=== PATIENT | female | born 1990 | race Caucasian/White ===

== ENCOUNTER → 2018-06-15 13:36 | Outpatient (CLI) | payer OTHER | END | disposition home or self-care (01) | LOC: D.LDO 13:36 | DX: O26.899 Other specified pregnancy related conditions, unspecified trimester (principal); Z3A.00 Weeks of gestation of pregnancy not specified; K59.09 Other constipation ==

== ENCOUNTER → 2018-06-22 14:38 | Outpatient (CLI) | payer OTHER | END | disposition home or self-care (01) | LOC: D.LDO 14:38 | DX: O26.899 Other specified pregnancy related conditions, unspecified trimester (principal); Z3A.00 Weeks of gestation of pregnancy not specified; K59.00 Constipation, unspecified ==

== ENCOUNTER → 2018-07-10 13:04 | Outpatient (CLI) | payer MEDICARE ==
--- NOTE | ~2018-07-10 | EC ---
PATIENT:JAD BERNAL DATE OF SERVICE: 07/10/18 SEX: F MEDICAL RECORD: [id number] DATE OF : 88 LOCATION:D.FORMERLY [facility], LATER [facility] AGE OF PATIENT: 27 ADMISSION DATE: 07/10/18 REFERRING PHYSICIAN: INTERPRETING PHYSICIAN: CHANDA WEAVER MD ECHOCARDIOGRAM REPORT ECHO CHARGES 4 ECHO COMPLETE Date: 07/10/18 CLINICAL DIAGNOSIS: MURMUR/DYSPNEA ECHOCARDIOGRAPHIC MEASUREMENTS (adult normal given) AC root (d.<3.7cm) 2.5 cm LV Septum d (<1.2 cm> 1.0 cm Valve Excursion 1.8 cm LV Septum (systole) 1.5 cm Left Atria (s.<4.0cm> 3.2 cm LVPW d(<1.2cm) 1.1 cm RV (d.<2.3cm) 3.2 cm LVPW (sytole) 1.5 cm LV diastole(<5.6CM) 4.0 cm MV E-F(>70mm/sec) cm LV systole 1.9 cm LVOT Diameter 1.9 cm MV exc.(>10mm) cm Est.ejection fraction (50-75%) % DOPPLER: LVIT cm/sec A 87.0 cm/sec E 72.0 cm/sec LA cm/sec RVSP 29.3 mmHg LVOT 78.0 cm/sec AOP1/2T m/s Asc. Ao 118 cm/sec RVOT 100 cm/sec RA cm/sec PA 97.0 cm/sec AV Gradient Peak 5.6 mmHg AV Mean 3.0 mmHg AV Area 1.7 cm MV Gradient Peak 3.7 mmHg MV Mean 1.5 mmHg MV Area cm COMMENTS: Ragman: Jimi OZUNAOE Grinder Machine Knife Setter: 3 Dr. Archer TAPE# PACS Pericardial Effusion N DATE OF SERVICE: 07/10/2018 Adequate 2D, color flow and spectral Doppler, and M-mode. No LVH. LV internal dimensions are normal. Wall motion is normal. EF is greater than 55%. Aortic valve is tricuspid. No evidence of stenosis by Doppler interrogation. Left atrium is normal at 3.2 cm. Mitral valve shows no prolapse. Trace MR. Right-sided chambers grossly normal. Trace TR. TRANSINT:[id number] Voice Confirmation ID: [id number] DOCUMENT ID: [id number] ECHOCARDIOGRAM REPORT [id number] JAD BERNAL,CHANDA Reyes MD at 1303 CC: [id number] DICTATION DATE: 07/12/18831 CINNAMON GRINDER: 07/12/18 0845 DEP CLI 07/10/18 [id number] [place] [address]
== END | disposition home or self-care (01) ==
LOC: D.ECHO 13:04
DX: R01.1 Cardiac murmur, unspecified (principal); R06.02 Shortness of breath

== ENCOUNTER → 2018-08-31 12:25 | Outpatient (CLI) | payer MEDICARE ==
[2018-08-31 14:07] LABS: APPEARANCE SL CLDY (CLEAR); BILIRUBIN NEGATIVE (NEGATIVE); COLOR YELLOW (YELLOW); GLUCOSE NEGATIVE (NEGATIVE); KETONE NEGATIVE (NEGATIVE); NITRITE NEGATIVE (NEGATIVE); PROTEIN NEGATIVE (NEGATIVE); SPECIFIC GRAVITY 1.025 (1.005-1.020); UROBILINOGEN NORMAL (NORMAL)
== END | disposition home or self-care (01) ==
LOC: D.LDO 12:25
PROVIDERS: Obstetrics & Gynecology
DX: O26.892 Other specified pregnancy related conditions, second trimester (principal); Z3A.22 22 weeks gestation of pregnancy; R10.30 Lower abdominal pain, unspecified

== ENCOUNTER → 2018-11-08 06:21 | Outpatient (CLI) | payer MEDICARE ==
[2018-11-08 07:21] LABS: BASOPHILS 0.1 % (0-2); EOSINOPHILS 1.3 % (0-7); HEMATOCRIT 34.3 % (36.0-48.0); HEMOGLOBIN 10.9 g/dL (12-16); IMMATURE GRANULOCYTES 0.4 % (0-5); LYMPHOCYTES 16.9 % (15-50); MCH 27.3 pg (26.0-34.0); MCHC 31.8 g/dL (31.0-37.0); MEAN PLATELET VOLUME 9.4 fL (7.4-10.4); MONOCYTES 6.9 % (2-11); NEUTROPHILS 74.4 % (40-80); PLATELET COUNT 286 10x3/uL (130-400); RBC 3.99 10x6/uL (4.00-5.40); RDW 13.5 % (11.5-14.5); WBC 8.3 10x3/uL (4.8-10.8)
[2018-11-08 07:23] LABS: APPEARANCE HAZY (CLEAR); COLOR YELLOW (YELLOW); SPECIFIC GRAVITY 1.015 (1.005-1.020)
[2018-11-08 07:24] LABS: BILIRUBIN NEGATIVE (NEGATIVE); GLUCOSE NEGATIVE (NEGATIVE); KETONE NEGATIVE (NEGATIVE); NITRITE NEGATIVE (NEGATIVE); PROTEIN NEGATIVE (NEGATIVE); UROBILINOGEN NORMAL (NORMAL)
[2018-11-08 08:06] LABS: UDS - AMPHET NEGATIVE QUAL (NEGATIVE); UDS - BARB NEGATIVE QUAL (NEGATIVE); UDS - BENZO POSITIVE QUAL (NEGATIVE); UDS - COCAINE NEGATIVE QUAL (NEGATIVE); UDS - OPIATE NEGATIVE QUAL (NEGATIVE); UDS - PCP NEGATIVE QUAL (NEGATIVE); UDS - THC NEGATIVE QUAL (NEGATIVE)
== END | disposition home or self-care (01) ==
LOC: D.LDO 06:21
PROVIDERS: ATTEND Obstetrics & Gynecology
DX: O26.893 Other specified pregnancy related conditions, third trimester (principal); Z3A.31 31 weeks gestation of pregnancy; R10.9 Unspecified abdominal pain

== ENCOUNTER → 2018-12-04 10:18 | Outpatient (CLI) | payer MEDICARE ==
[~2018-12-04 10:18] MED LIST: BUPROPION XL150 MG PO; CELEXA40 MG PO; GLYBURIDE2.5 MG PO; KLONOPIN1 MG PO; LASIX20 MG PO; LUNESTA2 M1 PO; METFORMIN HCL500 M1 PO; PERCOCET 7.5/321 TAB PO; TORADOL10 MG; VALTREX500 MG PO; XANAX1 MG PO
[2018-12-18 02:19] VITALS: BMI 36.1
== END | disposition home or self-care (01) ==
LOC: D.LDO 10:18
PROVIDERS: ATTEND Obstetrics & Gynecology
DX: O24.419 Gestational diabetes mellitus in pregnancy, unspecified control (principal); Z3A.35 35 weeks gestation of pregnancy

== ENCOUNTER → 2018-12-07 14:02 | Outpatient (CLI) | payer OTHER ==
[2018-12-07 14:48] LABS: BASOPHILS 0.1 % (0-2); EOSINOPHILS 0.7 % (0-7); HEMATOCRIT 31.1 % (36.0-48.0); HEMOGLOBIN 9.7 g/dL (12-16); IMMATURE GRANULOCYTES 0.3 % (0-5); LYMPHOCYTES 18.5 % (15-50); MCH 25.9 pg (26.0-34.0); MCHC 31.2 g/dL (31.0-37.0); MCV 83.2 fL (80.0-100.0); MEAN PLATELET VOLUME 10.2 fL (7.4-10.4); MONOCYTES 9.3 % (2-11); NEUTROPHILS 71.1 % (40-80); PLATELET COUNT 275 10x3/uL (130-400); RBC 3.74 10x6/uL (4.00-5.40); RDW 14.2 % (11.5-14.5); WBC 7.3 10x3/uL (4.8-10.8)
[2018-12-07 15:08] LABS: ALBUMIN 2.6 g/dL (3.4-5.0); ALKALINE PHOSPHATASE 99 U/L (46-116); ALT (SGPT) 16 U/L (10-68); BILIRUBIN - DIRECT 0.06 mg/dL (0.00-0.30); BILIRUBIN - INDIRECT 0.07 mg/dL (0.00-1.00); BILIRUBIN - TOTAL 0.13 mg/dL (0.2-1.3); CALC OSMOLALITY 270 mosm/kg (275-300); CALCIUM 9.2 mg/dL (8.5-10.1); CARBON DIOXIDE 25.7 mmol/L (21.0-32.0); CHLORIDE - SERUM 103 mmol/L (98-107); CREATININE - SERUM 0.6 mg/dL (0.6-1.3); GLUCOSE 96 mg/dL (74-106); POTASSIUM - SERUM 4.3 mmol/L (3.5-5.1); PROTEIN - SERUM 6.2 g/dL (6.4-8.2); SODIUM 136 mmol/L (136-145); UREA NITROGEN 9 mg/dL (7-18); URIC ACID 4.2 mg/dL (2.6-7.2); eGFR NON AFRICAN AMERICAN > 90 mL/min (90-120)
[2018-12-18 02:19] VITALS: BMI 36.1
== END | disposition home or self-care (01) ==
LOC: D.LDO 14:02
PROVIDERS: ATTEND Obstetrics & Gynecology
DX: O24.913 Unspecified diabetes mellitus in pregnancy, third trimester (principal); Z3A.35 35 weeks gestation of pregnancy

== ENCOUNTER → 2018-12-12 12:31 | Outpatient (CLI) | payer OTHER ==
[2018-12-18 02:19] VITALS: BMI 36.1
== END | disposition home or self-care (01) ==
LOC: D.LDO 12:31
PROVIDERS: ATTEND Obstetrics & Gynecology
DX: O24.419 Gestational diabetes mellitus in pregnancy, unspecified control (principal); Z3A.36 36 weeks gestation of pregnancy

== ENCOUNTER 2018-12-18 01:37 | Inpatient (IN) | payer OTHER ==
[2018-12-18] VITALS (12 sets, daily range): BP systolic 104–133; BP diastolic 55–81; Ht 170.2 cm; Wt 104.3 kg
[~2018-12-18] VITALS: Ht 170.2 cm; Wt 104.3 kg
[2018-12-18 02:15] LABS: HEMATOCRIT 32.8 % (36.0-48.0); HEMOGLOBIN 10.3 g/dL (12-16); MCH 25.9 pg (26.0-34.0); MCHC 31.4 g/dL (31.0-37.0); MCV 82.6 fL (80.0-100.0); MEAN PLATELET VOLUME 10.6 fL (7.4-10.4); RBC 3.97 10x6/uL (4.00-5.40); RDW 14.7 % (11.5-14.5); WBC 6.9 10x3/uL (4.8-10.8)
[2018-12-18] MEDS ORDERED: VALTREX500 MG PO (02:16)
[2018-12-18] MEDS ORDERED: CELEXA40 MG PO (02:16)
[2018-12-18] MEDS ORDERED: LUNESTA2 M1 PO (02:16)
[2018-12-18] MEDS ORDERED: METFORMIN HCL500 M1 PO (02:17)
[2018-12-18] MEDS ORDERED: GLYBURIDE2.5 MG PO (02:18)
[2018-12-18] MEDS ORDERED: XANAX1 MG PO (02:19)
--- NOTE | 2018-12-18 04:15 | NUR ---
PT REC'D FROM RECOVERY AT THIS TIME. STATES PAIN IS A 5 TO INCISION. PT MEDICATED PER RECOVERY NURSE WITH DEMEROL AT THIS TIME. WILL CONTINUE TO COMITOR PAIN THIS SHIFT. IV INFISING TO THE LFT HAND PLACED ON FUMP AT 125 ML/HR. SITE CLEAR AND PATENT AT THIS TIME. LUNGS CLEAR. BS+. DRESSING TO ABDOMEN INTACT WITH SMALL AMOUNT OF DRAINAGE NOTED AT THIS TIME . FUNDUS FIRM U/U WITH MODERATE LOCHIA NOTED. JIMENEZ CATH PATENT WITH YELLOW URIOINE NOTED. SCDS ON AND FUNCTIONAL. NO ACUTE DISTRESS NOTED AT THIS TIME. PT INFORMED OF PLAN OF CARE AND AGREES AT THIS TIME. PT GIVEN ICE CHIPS. WILL ADVANCE TOLERATED. Alex MEDELLIN RN
--- NOTE | 2018-12-18 05:21 | NUR ---
PT MEDICATED WITH DILAUDID 2 MG FOR PAIN LEVEL OF 6. WILL CONTINUE TO MONITOR. Alex MEDELLIN RN
--- NOTE | 2018-12-18 07:31 | NUR ---
PT FAMILY MEMBER TO DESK STATING THAT PT IS WANTING TO GET UP OOB TO WALK TO NURSERY TO SEE . THIS RN TO ROOM. CONCERNS OVER AMBULATING TOO SOON POST-OP DISCUSSED WITH PT AND FAMILY. PT INSTRUCTED THIS RN WILL ASSESS PT AND GIVE REPORT TO DR COE, AND SEE WHAT HIS ORDERS FOR POC ARE AND WHEN SHE MAY AMBULATE. PT RATING PAIN 6/10 AT THIS TIME, STATES PAIN IS CONSTANTLY THERE BUT COMES AND GOES BETWEEN A 4/10 AND 6/10. SHIFT ASSESSMENT COMPLETED, VSS, SEE FLOWSHEET FOR DOC. FF, ML, U/1. SMALL RUBRA LOCHIA NOTED TO PADS, NO CLOTS. ABD DRESSING HAS NO FURTHER DRAINAGE NOTED OUTSIDE OF MARKED BORDERS ON DRESSING. DRESSING IS INTACT. JIMENEZ CATH DRAINING CLEAR YELLOW URINE TO BEDSIDE DRAINAGE. 35ML NOTED IN UROMETER. SCD'S ON LE BILAT. FANS DELIVERS CLEAR LIQUID DIET TRAY. WILL NOTIFY MD AND UPDATE PT.
--- NOTE | 2018-12-18 07:45 | NUR ---
Dr Pak on unit report given of pt desire to go to the nursery. Also verififed if pt could have tordal. Order recieved for Tordal 30mg IVP [id number], and pt can begin ambulating at 1000.
--- NOTE | 2018-12-18 07:50 | NUR ---
PT UPDATED ON ORDERS FROM DR COE AND POC. UNDERSTANDING VERBALIZED. PT STATES SHE IS JUST FEELING A LITTLE ANXIOUS BEING FROM INFANT, STATES SHE USUALLY TAKES 1MG XANAX. WILL REVIEW MED REC. PT STATES SHE FELT "A GUSH" VAGINALLY WHILE MOVING AROUND IN BED. ELANA, RN TO ROOM TO ASSIST THIS RN. SMALL-MOD RUBRA LOCHIA WITHOUT CLOTS NOTED TO PERIPADS. FF. PERICARE DONE AND PADS CHANGED. PT POSITIONED UP IN BED TO SITTING TO EAT CLEAR LIQUID BREAKFAST, SUPPORTED WITH PILLOWS. TRAY SET UP FOR PT. SRUx2, CL IN REACH. WILL RETURN WITH MEDS.
--- NOTE | 2018-12-18 08:05 | NUR ---
PT ADMIN TORADOL ORDERED, SEE EMAR FOR DOC. WAITING ON PHARMCY VERIFICATION OF XANAX, WILL ADMIN WHEN AVAILABLE.
--- NOTE | 2018-12-18 08:15 | NUR ---
PO XANAX ADMIN, SEE EMAR FOR DOC. PT DENIES NEEDS AT THIS TIME, STATES TORADOL IS ALREADY HELPING. PT PROVIDED WITH JELLO PER REQUEST. FAMILY AT BEDSIDE. WILL CONT TO MONITOR. SRUx2, CL IN REACH.
--- NOTE | 2018-12-18 09:17 | NUR ---
THIS RN TO ROOM FOR PT CHECK. 35ML CLEAR YELLOW URINE NOTED IN UROMETER. PT REQUESTING PAIN MED, STATES PAIN IS APPROX 4/10. PT STATES SHE WOULD LIKE TO HAVE IT BETTER CONTROLLED SO SHE CAN SLEEP. PT ADMIN IV DILAUDID ORDERED, SEE EMAR FOR DOC. PT FAMILY AT BEDSIDE. SRUx2, CL IN REACH. PT ENCOURAGED TO REST. WILL CONT TO MONITOR.
--- NOTE | 2018-12-18 11:20 | NUR ---
THIS RN TO ROOM. PT PITOCIN STOPPED, IV SALINE LOCKED. PT OFF MONITORS, SCD'S OFF. JIMENEZ CATH REMOVED. PERICARE PER THIS RN. PT STANDS AT BEDSIDE. PLACED IN CLEAN PANTIES AND PERIPADS. PT GOWN CHANGED. PT ASSISTED TO W/C AND TAKEN TO NURSERY TO SEE .
--- NOTE | 2018-12-18 11:25 | NUR ---
PT UP OUT OF W/C TO WASH HANDS TO HOLD INFANT. PT STATES SHE DOES NOT FEEL DIZZY, CAN AMBULATE TO . PT AMBULATES ACROSS NURSERY WITH MINIMAL ASSIST AND TO ON UNIT. PT STANDS AT SIDE OF CRIB, DENIES FEELING DIZZY WITH STANDING. W/C BEHIND PT WITH WHEELS LOCKED FOR SITTING IF NEEDED. PT TOUCHING INFANT, BONDING WELL. PT LEFT WITH JUSTIN SPENCE RN. WILL RETURN TO MONITOR.
--- NOTE | 2018-12-18 11:45 | NUR ---
THIS RN TO NURSERY FOR PT CHECK. PT SITTING IN WHEELCHAIR NEXT TO INFANT. WILL CONT TO MONITOR.
--- NOTE | 2018-12-18 12:00 | NUR ---
THIS RN TO NURSERY TO CHECK ON PT. PT SITTING IN W/C, INFANT WITH INSTRUCTION FROM UNDERGROUND HEAVY EQUIPMENT OPERATOR AND NURSERY RN. PT DENIES NEEDS. WILL CONT TO MONITOR.
--- NOTE | 2018-12-18 12:20 | NUR ---
PT BACK TO BED VIA W/C. AMBULATES SHORT DISTANCE FROM W/C TO BED. PT POSITIONS SELF UP IN BED WITHOUT ASSIST. PT POSITIONED WITH PILLOWS. VSS, SEE FLOWSHEET. FANS DELIVERS REGULAR DIET TRAY. DIET ADVANCED PER AMBULATING AND ACTIVE BSx4Q. PT DENIES NAUSEA. ICE WATER GIVEN. SRUx2, CL IN REACH. PT MOTHER IN LAW AT BEDSIDE. WILL CONT TO MONITOR.
--- NOTE | 2018-12-18 12:50 | NUR ---
PT FAMILY MEMBER TO DESK STATING PT HAS DIETARY REQUEST. THIS RN TO ROOM. PT REQUESTING MORE SQUASH. FANS NOTIFIED, DELIVERS SQUASH REQUESTED. PT DENIES NAUSEA, EATING AT THIS TIME. WILL CONT TO MONITOR.
--- NOTE | 2018-12-18 12:53 | NUR ---
PT CALLS OUT POTTERY MACHINE OPERATOR LIGHT STATING SHE IS READY TO SHOWER. THIS RN TO ROOM. PT INSTRUCTED THIS RN WILL GATHER SHOWER SUPPLIES AND RETURN FOR SHOWER.
--- NOTE | 2018-12-18 13:20 | NUR ---
PT FAMILY MEMBER TO DESK STATING PT HAS GOTTEN UP TO VOID. THIS RN TO ROOM. PT SITTING ON TOILET, NOTED TO HAVE VOIDED APPROX 50ML URINE IN CONTAINER. PT INSTRUCTED ON NEED TO MEASURE NEXT VOIDS WELL. PT REQUESTS TO SHOWER. PT ASSISTED UP TO SHOWER WITH MINIMAL ASSIST. PT SHOWERS, ABD DRESSING REMOVED. INCISION IS C/D WITH JENNA INTACT. PT PASSING GAS WHILE UP IN BR. PT ASSISTED WITH DRYING AND DRESSING. PT INSTRUCTED ON INCISION CARE AND S/S TO REPORT, WELL WHAT TO EXPECT WITH LOCHIA AND S/S TO REPORT. UNDERSTANDING VERBALIZED. PT ENCOURAGED TO EMPTY BLADDER REGULARLY. PT AMBULATING IN ROOM, BRUSHES TEETH AND HAIR AND APPLIES LOTION. BED LINENS CHANGED. PT BACK TO BED AND POSTIONS SELF UP IN BED TO SITTING. PT REQUESTING PAIN MEDICATION AND TO ROOM. WILL ADMIN AND NOTIFY MIKEY RN.
--- NOTE | 2018-12-18 13:37 | NUR ---
THIS RN TO ROOM. PT ADMIN SCHEDULED TORADOL. PT ALSO REQUESTS IV DILAUDID FOR PAIN TO "STAY AHEAD OF IT." PT STATES SHE IS HURTING MORE AFTER SHOWERING. PT ADMIN ORDERED, SEE EMAR FOR DOC. NURSERY RN TO ROOM WITH INFANT AT THIS TIME, FAMILY FOLLOWING. PT DENIES NEEDS AT THIS TIME. FAMILY INSTRUCTED TO MONITOR PT IF SHE HOLDS INFANT, HER PAIN MED WILL MAKE HER DROWSY. UNDERSTANDING VERBALIZED. PT PROVIDED WITH CUP OF ICE PER REQUEST, DENIES FURTHER NEEDS. SRUx2, CL IN REACH. FAMILY AT BEDSIDE. WILL CONT TO MONITOR.
--- NOTE | 2018-12-18 15:04 | NUR ---
THIS RN TO ROOM PER PT REQUEST INSURANCE RISK SURVEYOR LIGHT FOR SPRITE AND ICE. PT ADMIN ORDERED CELEXA AFTER REVIEWING MED REC WITH DR COE AND ORDER RCVD TO CONTINE CELEXA 40MG PO STARTING NOW. PT SITTING UP IN BED TALKING WITH MIKEY RN ABOUT . PT DENIES NEEDS. SRUx2, CL IN REACH. FAMILY AT BEDSIDE. PT RATING PAIN 4/10 AT THIS TIME.
--- NOTE | 2018-12-18 16:20 | NUR ---
DR COE VERIFIES PT PRN XANAX ORDER MAY BE CHANGED FROM 0.5MG TO 1MG PER PT REQUESTING TO HAVE DOSAGE CHANGED SHE USUALLY TAKES 1MG PRN.
--- NOTE | 2018-12-18 16:23 | NUR ---
PT CALLS OUT PAPERBOARD MACHINE OPERATOR LIGHT REQUESTING HER XANAX 1MG FOR ANXIETY WITH WORSENING PAIN. ADMIN TO PT, SEE EMAR FOR DOC. PT DENIES FURTHER NEEDS. PT SITTING IN BED, SPOUSE AT BEDSIDE. WILL CONT TO MONITOR.
--- NOTE | 2018-12-18 16:45 | NUR ---
PT AMBULATING IN HALLS TO NURSERY, DENIES NEEDS.
--- NOTE | 2018-12-18 17:00 | NUR ---
PT SPOUSE TO DESK STATING PT HAS VOIDED. THIS RN TO ROOM. 250ML CLEAR YELLOW URINE NOTED IN UROMETER. PT INSTRUCTED TO MEASURE 2 MORE VOIDS. FRESH WATER GIVEN AND PT ENCOURAGED TO DRINK. DENIES FURTHER NEEDS. SRUx2, CL IN REACH.
[2018-12-18 17:20] LABS: HIV 1 & 2- RAPID SCREEN NEGATIVE (NEGATIVE)
--- NOTE | 2018-12-18 17:32 | NUR ---
PT ADMIN PRN DILAUDID ORDERED PER PT REQUEST FOR WORSENING PAIN, SEE EMAR FOR DOC. PT DENIES FURTHER NEEDS, STATE SHE IS GOING TO TRY TO REST. SRUx2, CL IN REACH. SPOUSE AT BEDSIDE.
--- NOTE | 2018-12-18 20:10 | NUR ---
PT REC'D IN BED AT THIS TIME. STATES THAT PAIN IS A 6 AT THIS TIME. LUNGS CLEAR. BS+. JENNA INTACT TO INCISION. NO S/S OF INFECTION NOTED. DENIES FLATUS AT THIS TIME. SALINE LOCK TO THE LEFT HAND AT THIS TIME. SITE CLEAR. PT UP TO RESTROOM AT THIS TIME. PT VOIDED 400 ML AT THIS TIME. NO DISTRESS NOTED. Alex MEDELLIN RN
--- NOTE | 2018-12-18 20:30 | NUR ---
PT MEDICATED WITH MOTRIN AND PERCOCET AT THIS TIME FOR PAIN LEVEL OF 6. WILL CONTINUE TO MONITOR THIS SHIFT. Alex MEDELLIN RN
--- NOTE | 2018-12-18 21:10 | NUR ---
PT STATES THAT PAIN IS A 5. WARM PACK APPLIED AT THIS TIME. L VIGNESH RN
--- NOTE | 2018-12-18 22:37 | NUR ---
PT STATES THAT SHE WOULD LIKE SOMETHING FOR SLEEP. AMBIEN 10 MG GIVEN AT THIS TIME. WILL CONTINUE TO MONITOR. Alex MEDELLIN RN
--- NOTE | 2018-12-18 23:30 | NUR ---
PT COMFORTABLE AT THIS TIME. DENIES NEEDS AT THIS TIME. NO DISTRESS NOTED. Alex MEDELLIN RN
--- NOTE | 2018-12-19 00:30 | NUR ---
PT AMBULATING IN THE HALLS AT THIS TIME. NO NNEDS VOICED. Alex MEDELLIN RN
--- NOTE | 2018-12-19 01:47 | NUR ---
OT MEDICATED WITH PERCOCET FOR PAIN AT THIS TIME. WILL CONTINUE TO MONITOR. Alex MEDELLIN RN
--- NOTE | 2018-12-19 03:21 | NUR ---
PT RESTING COMFORTABLY WITHOUT COMPLAINTS. Alex MEDELLIN RN
--- NOTE | 2018-12-19 05:54 | NUR ---
PT MEDICATED FOR PAIN LEVEL OF 5 WITH PERCOCET 10 MG. WILL MONITOR FOR PAIN. Alex MEDELLIN RN
--- NOTE | 2018-12-19 06:47 | NUR ---
PT ASLEEP AT THIS TIME. DID NOT AWAKEN. Alex MEDELLIN RN
[2018-12-19 06:56] LABS: BASOPHILS 0.1 % (0-2); EOSINOPHILS 1.5 % (0-7); IMMATURE GRANULOCYTES 0.3 % (0-5); LYMPHOCYTES 19.4 % (15-50); MCH 25.9 pg (26.0-34.0); MCHC 30.8 g/dL (31.0-37.0); MCV 84.1 fL (80.0-100.0); MEAN PLATELET VOLUME 10.4 fL (7.4-10.4); MONOCYTES 12.1 % (2-11); NEUTROPHILS 66.6 % (40-80); RDW 14.7 % (11.5-14.5); WBC 6.9 10x3/uL (4.8-10.8)
[2018-12-19 06:57] LABS: HEMATOCRIT 25.3 % (36.0-48.0); HEMOGLOBIN 7.8 g/dL (12-16); PLATELET COUNT 232 10x3/uL (130-400); RBC 3.01 10x6/uL (4.00-5.40)
[2018-12-19 07:22] LABS: RAPID PLASMA REAGIN Non Reactive (Non Reactive)
--- NOTE | 2018-12-19 07:41 | NUR ---
DR COE HERE.
[2018-12-19 07:58] VITALS: BP 130/58
--- NOTE | 2018-12-19 08:06 | NUR ---
SITTING UP IN BED HOLDING . BABY AT BREAST. VS DONE. STATES THAT DR COE WAS IN AND THAT HE IS GOING TO ORDER SOME DILAUDID FOR PAIN.
--- NOTE | 2018-12-19 08:30 | NUR ---
PHONED DR COE CELL PHONE TO RECEIVE ORDERS FOR MEDICATIONS.
--- NOTE | 2018-12-19 08:50 | NUR ---
AGAIN PHONED DR COE CELL PHONE TO RECEIVE ORDERS.
--- NOTE | 2018-12-19 09:04 | NUR ---
SITTING UP IN BED HOLDING .
--- NOTE | 2018-12-19 09:46 | NUR ---
Sirisha Yanceyth 12/19/18 LE@ 8:15 S: Patient states she had an emergency . States baby really hasn't been latching much. He did latch for 15 minutes last night. This is her first baby and she doesn't know much about . She fed 35ml of formula at 7:30. Verbally agrees to ask for help with next feeding. Denies pain with latching or questions at this time. O: Patient sitting up in bed holding , in room at bedside. Explained takes time, practice, and patience. It is normal for to want to nurse every 2-3 hours or sooner, every infant is different. How long infant remains latch will vary also. Most will want to nurse between 5-20 minutes, but this can vary also depending on . Asked when was the last time infant ate. Since infant had formula at 7:30 he is not going to want to nurse now. Explained breastmilk composition, infant feeding cues, supply and demand, the importance of practicing responsive feeding, benefits of skin to skin, position, and how to verify is latched correctly. Asked if any problems with sore nipples or pain with ? Encouraged to to nurse infant for every feeding to help with establishing her milk supply. Please ask for help as needed with . Asked if any questions or concerns? Infant was placed skin to skin. A: Client have problems with latching to the breast for every feeding. . P: Continue to support during hospital visit. Carlos Varela, CLC
--- NOTE | 2018-12-19 12:55 | NUR ---
MEDS GIVEN PER PT REQUEST. RATES PAIN A 5 ON SCALE OF 0-10. CO INCISIONAL PAIN.
--- NOTE | 2018-12-19 13:30 | NUR ---
up and about in room. states that is passing flatus. rates pain a 4 on scale of 0-10.
--- NOTE | 2018-12-19 15:52 | NUR ---
PT AMBULATING IN HALLWAY. PT REQUESTS THAT SHE GET ANOTHER DOSE OF DILAUDID AND THEN WANTS HER IV REMOVED. INFORMED THAT WILL BE THERE SHORTLY.
--- NOTE | 2018-12-19 16:24 | NUR ---
MEDS GIVEN. PT REQUESTS SALINE LOCK OUT - IV REMOVED WITH CATH TIP INTACT- PRESSURE HELD AND BANDAIDE APPLIED.
--- NOTE | 2018-12-19 18:35 | NUR ---
ENTERED ROOM- PT SITTING ON SIDE OF BED. REQUESTING PAIN MEDICATION AT THIS TIME. RATING PAIN A 5 ON SCALE OF 0-10. DENIES OTHER NEEDS.
[2018-12-19 19:34] VITALS: BP 123/71
--- NOTE | 2018-12-19 19:34 | NUR ---
PT REC'D SITTING ON SIDE OF BED AT THIS TIME. STATES PAIN IS A 5 AT THIS TIME. PT PREVIOUSLY MEDICATED FOR PAIN. WILL CONTINUE TO MONITOR. NO ACUTE DISTRESS NOTED AT THIS TIME. LUNGS CLEAR. BS+. INCISION TO ABDOMEN INTACT. NO S/S OF INFECTION NOTED. FUNDUS FIRM AND MIDLINE WITH SCANT LOCHIA NOTED. PT VOIDING WITHOUT DIFFICULTY AT THIS TIME. SPOUSE AT THE BEDSIDE AND SUPPORTIVE. CALL LIGHT IN PT REACH. Alex MEDELLIN RN
--- NOTE | 2018-12-19 20:19 | NUR ---
PT AMBULATING IN HALLWAY AT THIS TIME. NO NEEDS VOICED AT THIS TIME. Alex MEDELLIN RN
--- NOTE | 2018-12-19 21:15 | NUR ---
KLONOPIN GIVEN AT THIS TIME. NO DISTRESS NOTED. NO NEEDS VERBALIZED. Alex MEDELLIN RN
--- NOTE | 2018-12-19 22:11 | NUR ---
PT MEDICATED WITH SCHEDULED TORADOL AND PRN AMBIEN FOR SLEEP. WILL CONTINUE TO MONITOR. Alex MEDELLIN RN
--- NOTE | 2018-12-19 23:04 | NUR ---
PT MEDICATED WITH PERCOCET 10 FOR PAIN LEVEL OF 5. PT AMBULATING TO VENDING MACHINES POST ADMINISTRATION. WILL CONTINUE TO MONITOR. Alex MEDELLIN RN
--- NOTE | 2018-12-20 00:14 | NUR ---
PT ASLEEP DID NOT AWAKEN AT THIS TIME. RESPS EVEN AND UNLABORED. Alex MEDELLIN RN
--- NOTE | 2018-12-20 02:30 | NUR ---
PT REC'D ASLEEP AT THIS TIME. DID NOT AWAKEN AT THIS TIME. Alex MEDELLIN RN
--- NOTE | 2018-12-20 04:28 | NUR ---
PT MEDICATED WITH PERCOCET AND TORADOL. PAIN LEVEL 7 AT THIS TIME. WILL CONTINUE TO MONITOR. Alex MEDELLIN RN
--- NOTE | 2018-12-20 05:20 | NUR ---
PT ASLEEP AT THIS TIME. DID NOT AWAKEN. RESPS EVEN AND UNLABORED. Alex MEDELLIN RN
--- NOTE | 2018-12-20 06:40 | NUR ---
PT RESTING WELL THIS SHIFT. ASLEEP THIS AM AFTER PAIN MEDICATION THIS AM. NO NEEDS VOICED. Alex MEDELLIN RN
--- NOTE | 2018-12-20 07:53 | NUR ---
DR. COE TO ROOM TO SPEAK WITH PATIENT.
[2018-12-20 08:15] VITALS: BP 123/76
--- NOTE | 2018-12-20 08:15 | NUR ---
TO ROOM, AM ASSESSMENT COMPLETED. SEE FLOWSHEET. INCISION C/D/I, WITH JENNA INTACT, NO REDNESS OR SWELLING NOTED TO SITE. PT IS NOW SITTING UP IN THE BED, HOLDING INFANT. SIG OTHER AT BEDSIDE. SR UP X2, CALL LIGHT AND PHONE WITHIN REACH. PT DENIES OTHER NEEDS.
--- NOTE | 2018-12-20 10:15 | NUR ---
PT AMBULATORY IN HALLWAYS, SMILING AND DENIES NEEDS. FAMILY IN ROOM AT THIS TIME.
--- NOTE | 2018-12-20 11:23 | NUR ---
PT AMBULATORY IN HALLWAYS, TO NURSERY. PT SMILING, DENIES NEEDS AT THIS TIME.
[2018-12-20] MEDS ORDERED: KLONOPIN1 MG PO (12:21)
[2018-12-20] MEDS ORDERED: PERCOCET 7.5/321 TAB PO (12:22)
[2018-12-20] MEDS ORDERED: TORADOL10 MG (12:24)
[2018-12-20] MEDS ORDERED: BUPROPION XL150 MG PO (12:25)
[2018-12-20] MEDS ORDERED: LASIX20 MG PO (12:25)
--- NOTE | 2018-12-20 12:40 | NUR ---
DISCHARGE INSTRUCTIONS EXPLAINED TO PATIENT, WITH COPIES PROVIDED TO PT. PT DENIES QUESTIONS. PT INQUIRING ABOUT MMR, AND RUBELLA STATUS. TELEPHONE CALL TO DR. COE, WITH MD REVIEWING RUBELLA STATUS, PT IS NON IMMUNE, WILL ADM MMR, SEE EMAR FOR ALL MEDS ADM BY THIS RN.
--- NOTE | 2018-12-20 14:15 | NUR ---
PT OFF UNIT AMBULATORY, REFUSES WHEELCHAIR, IN STABLE CONDITION, TO PRIVATE VEHICLE WITH INFANT IN CARSEAT, BEING CARRIED BY FATHER OF BABY.
== END 2018-12-20 14:15 | disposition home or self-care (01) | DRG 788 ==
LOC: D.LDO 01:37 → D.LD 01:52
PROVIDERS: ADMIT Obstetrics & Gynecology; ATTEND Obstetrics & Gynecology
PROC: 10D00Z1 Extraction of Products of Conception, Low, Open Approach (ICD-10-PCS; principal; 2018-12-18 02:31)
DX: O45.93 Premature separation of placenta, unspecified, third trimester (principal); Z3A.37 37 weeks gestation of pregnancy; Z37.0 Single live birth

== ENCOUNTER 2019-03-22 08:43 | Emergency (ER) | payer OTHER ==
[~2019-03-22] VITALS: Ht 170.2 cm; Wt 84.1 kg
[2019-03-22 08:46] VITALS: Ht 170.2 cm; Wt 84.1 kg
[2019-03-22] MEDS ORDERED: [UNRECOGNIZED DRUG - OTHER] (08:51)
[2019-03-22] MEDS ORDERED: EFFEXOR75 MG PO (08:51)
[2019-03-22] MEDS ORDERED: TORADOL10 MG PO (10:28)
[2019-03-22 10:37] VITALS: BP 138/82
== END 2019-03-22 10:38 | disposition home or self-care (01) ==
LOC: D.ER 08:43
DX: S22.32XA Fracture of one rib, left side, initial encounter for closed fracture (principal); W10.9XXA Fall (on) (from) unspecified stairs and steps, initial encounter; Y93.89 Activity, other specified; Y92.89 Other specified places as the place of occurrence of the external cause

== ENCOUNTER 2019-12-30 23:19 | Emergency (ER) | payer OTHER ==
[~2019-12-30] VITALS: Ht 170.2 cm; Wt 86.4 kg
[~2019-12-30 23:19] MED LIST changes: +EFFEXOR75 MG PO; +TORADOL10 MG PO; +[UNRECOGNIZED DRUG - OTHER]
[2019-12-30 23:24] VITALS: Ht 170.2 cm; Wt 86.4 kg
[2019-12-30] MEDS ORDERED: ATIVAN1 MG PO (23:28)
[2019-12-30] MEDS ORDERED: AMBIEN10 MG PO (23:28)
[2019-12-30 23:56] LABS: HEMATOCRIT 37.4 % (36.0-48.0); LYMPHOCYTES 32.4 % (15-50); MCH 27.6 pg (26.0-34.0); MCHC 32.1 g/dL (31.0-37.0); MCV 86.2 fL (80.0-100.0); MEAN PLATELET VOLUME 10.3 fL (7.4-10.4); NEUTROPHILS 58.6 % (40-80); RBC 4.34 10x6/uL (4.00-5.40); RDW 13.1 % (11.5-14.5); WBC 7.7 10x3/uL (4.8-10.8)
[2019-12-30 23:58] LABS: BILIRUBIN NEGATIVE (NEGATIVE); GLUCOSE NEGATIVE (NEGATIVE); KETONE NEGATIVE (NEGATIVE); NITRITE NEGATIVE (NEGATIVE); PLATELET COUNT 302 10x3/uL (130-400); UROBILINOGEN NORMAL (NORMAL)
[2019-12-31] LABS: CALC OSMOLALITY 271 mosm/kg (275-300); CALCIUM 8.7 mg/dL (8.5-10.1); CARBON DIOXIDE 20.2 mmol/L (21.0-32.0); CHLORIDE - SERUM 103 mmol/L (98-107); CREATININE - SERUM 0.8 mg/dL (0.6-1.3); GLUCOSE 116 mg/dL (74-106); POTASSIUM - SERUM 3.8 mmol/L (3.5-5.1); SODIUM 136 mmol/L (136-145); UREA NITROGEN 10 mg/dL (7-18); eGFR NON AFRICAN AMERICAN 89 mL/min (90-120)
[2019-12-31 00:39] LABS: HCG - QUANTITATIVE (MATERNAL) 48272 mIU/mL
[2019-12-31 01:41] VITALS: BP 118/71
== END 2019-12-31 01:41 | disposition home or self-care (01) ==
LOC: D.ER 23:19
PROVIDERS: Emergency Medicine
DX: O26.891 Other specified pregnancy related conditions, first trimester (principal); Z3A.12 12 weeks gestation of pregnancy; O20.0 Threatened abortion; O24.419 Gestational diabetes mellitus in pregnancy, unspecified control; K21.9 Gastro-esophageal reflux disease without esophagitis; K59.00 Constipation, unspecified; R10.9 Unspecified abdominal pain

== ENCOUNTER 2020-03-30 12:26 | Outpatient (CLI) | payer OTHER ==
[2019-12-30 23:24] VITALS: BMI 29.8
[~2020-03-30 12:26] MED LIST changes: +AMBIEN10 MG PO; +ATIVAN1 MG PO
== END 2020-03-30 15:02 | disposition home or self-care (01) ==
LOC: D.LDO 12:26
PROVIDERS: ATTEND Obstetrics & Gynecology
DX: O26.899 Other specified pregnancy related conditions, unspecified trimester (principal); Z3A.00 Weeks of gestation of pregnancy not specified; G43.909 Migraine, unspecified, not intractable, without status migrainosus

== ENCOUNTER 2020-04-03 12:10 | Outpatient (CLI) | payer OTHER ==
[2019-12-30 23:24] VITALS: BMI 29.8
== END 2020-04-03 14:53 | disposition home or self-care (01) ==
LOC: D.LDO 12:10
PROVIDERS: ATTEND Obstetrics & Gynecology
DX: O26.893 Other specified pregnancy related conditions, third trimester (principal); Z3A.35 35 weeks gestation of pregnancy; R51 Headache

== ENCOUNTER 2020-04-30 16:10 | Outpatient (CLI) | payer OTHER ==
[2019-12-30 23:24] VITALS: BMI 29.8
== END 2020-04-30 16:39 | disposition home or self-care (01) ==
LOC: D.LDO 16:10
PROVIDERS: ATTEND Obstetrics & Gynecology
DX: O35.9XX0 Maternal care for (suspected) fetal abnormality and damage, unspecified, not applicable or unspecified (principal)

== ENCOUNTER 2020-05-22 12:36 | Outpatient (CLI) | payer OTHER ==
[2019-12-30 23:24] VITALS: BMI 29.8
[2020-05-22] MEDS ORDERED: LUNESTA2 M1 PO (12:48)
[2020-05-22] MEDS ORDERED: XANAX1 MG PO (12:48)
[2020-05-22] MEDS ORDERED: LEXAPRO20 MG PO (12:48)
[2020-05-22] MEDS ORDERED: METOPROLOL TART25 MG PO (12:49)
[2020-05-22 13:23] LABS: UDS - AMPHET NEGATIVE QUAL (NEGATIVE); UDS - BARB NEGATIVE QUAL (NEGATIVE); UDS - BENZO POSITIVE QUAL (NEGATIVE); UDS - COCAINE NEGATIVE QUAL (NEGATIVE); UDS - OPIATE NEGATIVE QUAL (NEGATIVE); UDS - PCP NEGATIVE QUAL (NEGATIVE); UDS - THC NEGATIVE QUAL (NEGATIVE)
== END 2020-05-22 17:00 | disposition home or self-care (01) ==
LOC: D.LDO 12:36
PROVIDERS: ATTEND Obstetrics & Gynecology
DX: O35.9XX0 Maternal care for (suspected) fetal abnormality and damage, unspecified, not applicable or unspecified (principal)

== ENCOUNTER 2020-06-09 13:53 | Outpatient (CLI) | payer OTHER ==
[2019-12-30 23:24] VITALS: BMI 29.8
[~2020-06-09 13:53] MED LIST changes: +LEXAPRO20 MG PO; +METOPROLOL TART25 MG PO
== END 2020-06-09 17:00 | disposition home or self-care (01) ==
LOC: D.LDO 13:53
PROVIDERS: ATTEND Obstetrics & Gynecology
DX: O35.9XX0 Maternal care for (suspected) fetal abnormality and damage, unspecified, not applicable or unspecified (principal)